=== PATIENT | female | born 1970 | race Two or more races ===

== ENCOUNTER 2023-10-09 17:39 | Emergency (ER) | payer OTHER ==
[~2023-10-09] VITALS: Ht 160 cm; Wt 88.6 kg
[2023-10-09 17:39] VITALS: BP 172/82; PULSE 95; RESP 16; TEMP 98
[2023-10-09] MEDS ORDERED: INSU100V SQ (17:51)
[2023-10-09] MEDS ORDERED: SITA1TBM4 PO (17:51)
[2023-10-09] MEDS ORDERED: INSLAN SQ (17:51)
[2023-10-09] MEDS ORDERED: METH-659 PO (17:51)
[2023-10-09] MEDS ORDERED: AMOX500C2 PO (17:51)
[2023-10-09] MEDS: CefTRIAXone SODIUM 1 GM/VIAL IM ONE (18:17)
[2023-10-09] MEDS: LIDOCAINE/PF 1% 2 ML VIAL IM ONE (18:18)
[2023-10-09] MEDS: DOXYCYCLINE HYCLATE 100 MG TABLET PO ONE (18:18)
[2023-10-09 18:34] LABS: BASOPHILS % (AUTO) 0.8 % (0.0-2.0); EOSINOPHILS % (AUTO) 1.2 % (1.0-6.0); HEMATOCRIT 33.6 % (36-46); LYMPHOCYTES # (AUTO) 1.5 K/uL (1.0-4.8); MEAN CORPUSCULAR HEMOGLOBIN 27.1 pg (26.0-34.0); MEAN CORPUSCULAR HGB CONC 32.7 G/dL (31.0-37.0); MEAN CORPUSCULAR VOLUME 83 fL (80-100); MONOCYTES # (AUTO) 0.7 K/uL (0.1-1.0); MONOCYTES % (AUTO) 7.3 % (2.0-9.0); NEUTROPHILS # (AUTO) 6.7 K/uL (1.8-7.7); NEUTROPHILS % (AUTO) 73.7 % (40.0-70.0); PLATELET COUNT (AUTO) 302 K/uL (150-450); RED BLOOD CELL COUNT(AUTO) 4.06 MIL/uL (4.00-5.20); RED CELL DISTRIBUTION WIDTH 14.7 % (11.5-14.5); WHITE BLOOD COUNT (AUTO) 9.1 K/uL (4.5-11.0)
[2023-10-09 18:45] LABS: LACTIC ACID 0.6 mmol/L (0.4-2.0)
[2023-10-09 18:50] LABS: ANION GAP 9 mmol/L (8-16); CARBON DIOXIDE 29 mmol/L (22-29); CHLORIDE 104 mmol/L (98-107); CREATININE 0.65 mg/dL (0.60-1.30); GLOMERULAR FILTR. RATE CALC > 60 mL/min (>60); GLUCOSE,RANDOM 138 mg/dL (70-110); POTASSIUM 4.1 mmol/L (3.5-5.1); SODIUM SERUM 142 mmol/L (136-145); UREA NITROGEN, BLOOD 17 mg/dL (7-18)
[2023-10-09] MEDS ORDERED: IBUP-1554 PO (20:34)
[2023-10-09] MEDS ORDERED: DOXY-354 PO (20:34)
[2023-10-09] MEDS ORDERED: CEPH-558 PO (20:34)
[2023-10-09] MEDS ORDERED: BACI28.410 TP (20:37)
== END 2023-10-09 20:50 | disposition home or self-care (01) ==
LOC: EMS 17:42
DX: S91.201A Unspecified open wound of right great toe with damage to nail, initial encounter (principal); L03.031 Cellulitis of right toe; E11.40 Type 2 diabetes mellitus with diabetic neuropathy, unspecified; J45.909 Unspecified asthma, uncomplicated; I10 Essential (primary) hypertension; Z90.49 Acquired absence of other specified parts of digestive tract; Z98.890 Other specified postprocedural states; Z88.0 Allergy status to penicillin; X58.XXXA Exposure to other specified factors, initial encounter; Y93.89 Activity, other specified; Y92.89 Other specified places as the place of occurrence of the external cause; Y99.8 Other external cause status
CPT/HCPCS: 99284; 80048; 82962; 83605; 85025; 36415; 73660; 96372; J0696; J3490

== ENCOUNTER 2023-10-11 13:57 | Emergency (ER) | payer OTHER ==
[~2023-10-11] VITALS: Ht 154.9 cm; Wt 81.8 kg
[~2023-10-11 13:57] MED LIST: AMOX500C2 PO; BACI28.410 TP; CEPH-558 PO; DOXY-354 PO; IBUP-1554 PO; INSLAN SQ; INSU100V SQ; METH-659 PO; SITA1TBM4 PO
[2023-10-11 14:53] VITALS: BP 167/86; PULSE 87; RESP 14; TEMP 97.9
== END 2023-10-11 16:12 | disposition home or self-care (01) ==
LOC: EMS 13:57
DX: L08.9 Local infection of the skin and subcutaneous tissue, unspecified (principal); J45.909 Unspecified asthma, uncomplicated; I10 Essential (primary) hypertension; Z90.49 Acquired absence of other specified parts of digestive tract; Z98.890 Other specified postprocedural states; Z88.0 Allergy status to penicillin
CPT/HCPCS: 82962; 99282

== ENCOUNTER 2025-01-16 20:39 | Inpatient (IN) | payer MEDICAID, OTHER ==
[~2025-01-16] VITALS: Ht 154.9 cm; Wt 92.0 kg
[2025-01-16] MEDS ORDERED: 0.9% SODIUM CHLORIDE 10 ML SYRINGE IVP ONE (20:55)
[2025-01-16] MEDS ORDERED: IOHEXOL 350 MG/ML 100 ML VIAL ONE (20:55)
[2025-01-16] MEDS ORDERED: SODIUM CHLORIDE 0.9% 100 ML ONE (20:55)
[2025-01-16 21:09] LABS: CALCIUM, TOTAL 8.8 mg/dL (8.8-10.5); CREATININE 1.05 mg/dL (0.60-1.30); GLOMERULAR FILTR. RATE CALC 55.0 mL/min (>60); GLUCOSE,RANDOM 231.0 mg/dL (70-110); SODIUM SERUM 137.0 mmol/L (136-145); UREA NITROGEN, BLOOD 25.0 mg/dL (7-18)
[2025-01-16 21:13] LABS: ASPARTATE AMINOTRANSFERASE 16.0 U/L (15-37); CHOL/HDL RATIO 2.9 (3.9-5.7); LDL CHOL (CALC.) 128.0 mg/dL (0-130); PLATELET COUNT (AUTO) 310 K/uL (150-450); RED BLOOD CELL COUNT(AUTO) 4.54 MIL/uL (4.00-5.20); RED CELL DISTRIBUTION WIDTH 14.8 % (11.5-14.5); TOTAL PROTEIN, SERUM 7.3 g/dL (6.4-8.2); WHITE BLOOD COUNT (AUTO) 11.1 K/uL (4.5-11.0)
[2025-01-16 21:15] LABS: TROPONIN I-HIGH SENSITIVITY 6 ng/L (<51)
[2025-01-16] MEDS: LABETALOL HCL 5 MG/ML 20 ML VIAL IVP ONE (21:40)
[2025-01-16] MEDS: SODIUM CHLORIDE 0.9% 1,000 ML IV ONE (21:40)
[2025-01-16] MEDS: CLOPIDOGREL BISULFATE 300 MG TABLET PO ONE (21:41)
[2025-01-16] MEDS: ASPIRIN 81 MG CHEWABLE TABLET PO ONE (21:41)
[2025-01-16] MEDS ORDERED: BISACODYL 10 MG RECTAL RECTAL SUPPOSITORY PR PRN (23:00)
[2025-01-16] MEDS ORDERED: MAGNESIUM HYDROXIDE SUSPENSION 30 ML UDCUP PO PRN (23:00)
[2025-01-16] MEDS ORDERED: ONDANSETRON HCL 4 MG/2 ML VIAL IVP PRN (23:00)
[2025-01-16] MEDS ORDERED: ACETAMINOPHEN 325 MG TABLET PO PRN (23:00)
[2025-01-16] MEDS ORDERED: ZOLPIDEM TARTRATE 5 MG TABLET PO PRN (23:00)
[2025-01-16] MEDS ORDERED: HYDROCODONE/ACETAMINOPHEN 5-325 MG TABLET PO PRN (23:00)
[2025-01-16] MEDS ORDERED: MORPHINE SULFATE 2 MG/ML SYRINGE IVP PRN (23:00)
[2025-01-16] MEDS: HEPARIN SODIUM,PORCINE 5,000 UNITS/ML VIAL SQ SCH (23:51)
[2025-01-17 03:19] LABS: TROPONIN I-HIGH SENSITIVITY 9 ng/L (<51)
[2025-01-17 03:30] VITALS: BP 160/96; PULSE 83; RESP 16; TEMP 98.1; O2SAT 99
[2025-01-17 05:14] LABS: APPEARANCE,URINE CLEAR (CLEAR); GLUCOSE, URINE (UA) 70-100 mg/dL (NEGATIVE); LEUKOCYTE ESTERASE ,URINE NEGATIVE (NEGATIVE); NITRATE,URINE NEGATIVE (NEGATIVE); OCCULT BLOOD,URINE TRACE (NEGATIVE); PH,URINE DRUG SCREEN 6.5 (5.0-8.0); SPECIFIC GRAVITIY, URINE 1.028 (1.003-1.030)
[2025-01-17 05:18] LABS: ALCOHOL, URINE DRUG SCREEN NEGATIVE (NEGATIVE); AMPHET/METH SCREEN,URINE NEGATIVE (NEGATIVE); BARBITURATE SCREEN, URINE NEGATIVE (NEGATIVE); CANNABINOID SCREEN,URINE NEGATIVE (NEGATIVE); COCAINE SCREEN,URINE NEGATIVE (NEGATIVE); METHADONE SCREEN, URINE NEGATIVE (NEGATIVE)
[2025-01-17 05:35] LABS: SULFOSALICYLIC ACID,URINE 2+ (Negative)
[2025-01-17 06:01] LABS: GLUCOMETER DEV NAME(LOC) 5S.1D; GLUCOSE,POINT OF CARE 201 MG/DL (70-110)
[2025-01-17 07:22] VITALS: BP 155/75; RESP 18; TEMP 98; O2SAT 98
[2025-01-17] MEDS ORDERED: MISC MED-CONVERTED FROM AMBULATORY (Sitagliptin Phos/Metformin HCl (Janumet 50-1,000 mg Ta PO SCH (08:00)
[2025-01-17 09:42] LABS: TROPONIN I-HIGH SENSITIVITY 8 ng/L (<51)
[2025-01-17] MEDS: ASPIRIN 81 MG CHEWABLE TABLET PO SCH (10:22)
[2025-01-17] MEDS: DOCUSATE SODIUM 100 MG CAPSULE PO SCH (10:23)
[2025-01-17] MEDS: CLOPIDOGREL BISULFATE 75 MG TABLET PO SCH (10:24)
[2025-01-17] MEDS: PANTOPRAZOLE SODIUM 40 MG DR TABLET PO SCH (10:25)
[2025-01-17 11:49] VITALS: BP 157/80; PULSE 87; RESP 16; TEMP 98.2; O2SAT 95
[2025-01-17 16:12] VITALS: BP 149/82; PULSE 82; RESP 18; TEMP 98; O2SAT 96
[2025-01-17] MEDS ORDERED: ATORVASTATIN CALCIUM 20 MG TABLET PO SCH (21:00)
[2025-01-17] MEDS ORDERED: ATORVASTATIN CALCIUM 40 MG TABLET PO SCH (21:00)
[2025-01-17] MEDS ORDERED: INSULIN GLARGINE,HUM.REC.ANLOG 100 UNITS/ML SQ SCH (21:00)
[2025-01-18] MEDS ORDERED: LEVOTHYROXINE SODIUM 100 MCG TABLET PO SCH (06:30)
== END 2025-01-17 16:23 | disposition left against medical advice (07) | DRG 45 ==
LOC: EMS 20:39 → EDH 22:55 → 5N 01-17 03:15
PROVIDERS: ADMIT Internal Medicine; ATTEND Internal Medicine
DX: I63.9 Cerebral infarction, unspecified (principal); E11.40 Type 2 diabetes mellitus with diabetic neuropathy, unspecified; E66.01 Morbid (severe) obesity due to excess calories; D72.829 Elevated white blood cell count, unspecified; I10 Essential (primary) hypertension; I16.1 Hypertensive emergency; Z53.29 Procedure and treatment not carried out because of patient's decision for other reasons; R94.6 Abnormal results of thyroid function studies; J45.909 Unspecified asthma, uncomplicated; Z68.38 Body mass index [BMI] 38.0-38.9, adult; Z88.0 Allergy status to penicillin
CPT/HCPCS: 70496; 70498; 70551; 71045; 80053; 80061; 80307; 81001; 81002; 82948; 82962; 83036; 84443; 84484; 85025; 85610; 85730; 86850; 86900; 86901; 92523; 92610; 93005; 93880; 96361; 96374; 97116; 97163; 99292; G0378; J1644; J1815; J3490; J7030; J7050; 36415-L1; 36415-TC; 70450; 70450-TC

== ENCOUNTER 2025-03-27 12:32 | Inpatient (IN) | payer MEDICAID, OTHER ==
[~2025-03-27] VITALS: Ht 157.5 cm; Wt 103.5 kg
[2025-03-27 12:55] LABS: COVID AG,FIA SOURCE NASAL SWAB
[2025-03-27 13:18] LABS: PLATELET COUNT (AUTO) 289 K/uL (150-450); RED BLOOD CELL COUNT(AUTO) 4.44 MIL/uL (4.00-5.20); RED CELL DISTRIBUTION WIDTH 14.9 % (11.5-14.5); WHITE BLOOD COUNT (AUTO) 15.5 K/uL (4.5-11.0)
[2025-03-27 13:27] LABS: CALCIUM, TOTAL 8.9 mg/dL (8.8-10.5); CREATININE 0.67 mg/dL (0.60-1.30); GLOMERULAR FILTR. RATE CALC > 60 mL/min (>60); GLUCOSE,RANDOM 133 mg/dL (70-110); SODIUM SERUM 141 mmol/L (136-145); UREA NITROGEN, BLOOD 26 mg/dL (7-18)
[2025-03-27 13:32] LABS: SARS-COV2 (COVID) ANTIGEN,FIA Negative (Negative)
[2025-03-27 13:33] LABS: TROPONIN I-HIGH SENSITIVITY 15 ng/L (<51)
[2025-03-27 13:33] LABS: INFLUENZA TYPE A NEGATIVE FOR TYPE A (NEGATIVE); INFLUENZA TYPE B NEGATIVE FOR TYPE B (NEGATIVE)
[2025-03-27] MEDS ORDERED: LEVO100 PO (15:00)
[2025-03-27] MEDS ORDERED: LISI-894 PO (15:00)
[2025-03-27] MEDS ORDERED: ASPI-1450 PO (15:00)
[2025-03-27] MEDS: ACETAMINOPHEN 500 MG TABLET PO ONE (15:45)
[2025-03-27] MEDS ORDERED: 0.9% SODIUM CHLORIDE 5 ML NEB SOLUTION NEB ONE (16:55)
[2025-03-27] MEDS: CefTRIAXone 1 GM/DEXTROSE 50 ML IV ONE (16:56)
[2025-03-27] MEDS: FUROSEMIDE 40 MG/4 ML VIAL IVP ONE (16:56)
[2025-03-27] MEDS: IPRATROPIUM BROMIDE 0.5 MG/2.5 ML NEB SOLUTION NEB ONE (16:57)
[2025-03-27] MEDS: ALBUTEROL SULFATE 2.5 MG/0.5 ML 5 ML NEB SOLUTION NEB ONE (16:58)
[2025-03-27 17:00] VITALS: PULSE 83; RESP 20; O2SAT 96
[2025-03-27] MEDS ORDERED: 0.9% SODIUM CHLORIDE 10 ML SYRINGE IVP ONE (17:20)
[2025-03-27] MEDS ORDERED: SODIUM CHLORIDE 0.9% 100 ML ONE (17:20)
[2025-03-27] MEDS ORDERED: IOHEXOL 350 MG/ML 100 ML VIAL ONE (17:20)
[2025-03-27] MEDS: AZITHROMYCIN 500 MG/NS 250 ML IV ONE (17:41)
[2025-03-27 19:39] LABS: APPEARANCE,URINE CLEAR (CLEAR); GLUCOSE, URINE (UA) TRACE mg/dL (NEGATIVE); LEUKOCYTE ESTERASE ,URINE NEGATIVE (NEGATIVE); NITRATE,URINE NEGATIVE (NEGATIVE); OCCULT BLOOD,URINE MODERATE (NEGATIVE); SPECIFIC GRAVITIY, URINE 1.011 (1.003-1.030)
[2025-03-27] MEDS ORDERED: DEXTROSE 50%-WATER 25 GM/50 ML SYRINGE IVP PRN (20:15)
[2025-03-27] MEDS: FUROSEMIDE 20 MG/2 ML VIAL IVP SCH (21:14)
[2025-03-27] MEDS: LEVOFLOXACIN 750 MG/D5% WATER 150 ML IV SCH (21:15)
[2025-03-27] MEDS: INSULIN GLARGINE,HUM.REC.ANLOG 100 UNITS/ML SQ SCH (21:16)
[2025-03-27 21:36] LABS: SULFOSALICYLIC ACID,URINE 4+ (Negative)
[2025-03-27 21:39] LABS: SQUAMOUS EPITHELIAL CELL,UR Rare /LPF (None Seen)
[2025-03-27 23:03] VITALS: BP 171/83; PULSE 101; RESP 19; TEMP 97.9; O2SAT 97
[2025-03-28] VITALS (8 sets, daily range): BP systolic 125–169; BP diastolic 50–73; PULSE 76–93; RESP 17–20; TEMP 97.7–98.6; O2SAT 93–100
[2025-03-28] MEDS: INSULIN LISPRO 100 UNITS/ML SQ PRN (05:50)
[2025-03-28] MEDS: LEVOTHYROXINE SODIUM 100 MCG TABLET PO SCH (05:51)
[2025-03-28 06:17] LABS: PLATELET COUNT (AUTO) 249 K/uL (150-450); RED BLOOD CELL COUNT(AUTO) 3.67 MIL/uL (4.00-5.20); RED CELL DISTRIBUTION WIDTH 14.6 % (11.5-14.5); WHITE BLOOD COUNT (AUTO) 8.7 K/uL (4.5-11.0)
[2025-03-28 06:26] LABS: CALCIUM, TOTAL 8.1 mg/dL (8.8-10.5); CREATININE 0.78 mg/dL (0.60-1.30); GLOMERULAR FILTR. RATE CALC > 60 mL/min (>60); GLUCOSE,RANDOM 313 mg/dL (70-110); SODIUM SERUM 138 mmol/L (136-145); UREA NITROGEN, BLOOD 23 mg/dL (7-18)
[2025-03-28] MEDS: ASPIRIN 81 MG CHEWABLE TABLET PO SCH (09:02)
[2025-03-28 11:54] LABS: TROPONIN I-HIGH SENSITIVITY 48 ng/L (<51)
[2025-03-28] MEDS: GuaiFENesin/D-METHORPHAN/PHENYLEPH 5 ML LIQUID ORAL.SYG PO PRN (15:33)
[2025-03-28] MEDS: INSULIN GLARGINE,HUM.REC.ANLOG 100 UNITS/ML SQ SCH (20:17)
[2025-03-28 20:40] LABS: GLUCOMETER DEV NAME(LOC) 5N.2C; GLUCOSE,POINT OF CARE 261 MG/DL (70-110)
[2025-03-28 20:40] LABS: GLUCOMETER DEV NAME(LOC) 5N.2C; GLUCOSE,POINT OF CARE 295 MG/DL (70-110)
[2025-03-28 20:40] LABS: GLUCOMETER DEV NAME(LOC) 5N.2C; GLUCOSE,POINT OF CARE 328 MG/DL (70-110)
[2025-03-28 20:40] LABS: GLUCOMETER DEV NAME(LOC) 5N.2C; GLUCOSE,POINT OF CARE 362 MG/DL (70-110)
[2025-03-28] MEDS: ALBUTEROL SULFATE 2.5 MG/0.5 ML NEB SOLUTION NEB PRN (21:56)
[2025-03-28] MEDS: IPRATROPIUM BROMIDE 0.5 MG/2.5 ML NEB SOLUTION NEB PRN (21:56)
[2025-03-29 04:16] VITALS: BP 137/60; PULSE 85; RESP 18; TEMP 98.2; O2SAT 95
[2025-03-29 06:22] LABS: PLATELET COUNT (AUTO) 253 K/uL (150-450); RED BLOOD CELL COUNT(AUTO) 3.63 MIL/uL (4.00-5.20); RED CELL DISTRIBUTION WIDTH 14.2 % (11.5-14.5); WHITE BLOOD COUNT (AUTO) 7.2 K/uL (4.5-11.0)
[2025-03-29 06:31] LABS: CALCIUM, TOTAL 8.3 mg/dL (8.8-10.5); CREATININE 0.82 mg/dL (0.60-1.30); GLOMERULAR FILTR. RATE CALC > 60 mL/min (>60); GLUCOSE,RANDOM 219 mg/dL (70-110); SODIUM SERUM 140 mmol/L (136-145); UREA NITROGEN, BLOOD 28 mg/dL (7-18)
[2025-03-29 08:07] VITALS: BP 156/67; PULSE 83; RESP 18; TEMP 98.3; O2SAT 96
[2025-03-29 10:15] VITALS: PULSE 86; RESP 20; O2SAT 99
[2025-03-29 10:31] VITALS: PULSE 78; RESP 20; O2SAT 99
[2025-03-29 10:59] VITALS: BP 152/62; PULSE 84; RESP 18; TEMP 98.1; O2SAT 97
[2025-03-29 14:26] LABS: TROPONIN I-HIGH SENSITIVITY 35 ng/L (<51)
[2025-03-29 14:30] LABS: GLUCOMETER DEV NAME(LOC) 5S.2D; GLUCOSE,POINT OF CARE 209 MG/DL (70-110)
[2025-03-29 14:30] LABS: GLUCOMETER DEV NAME(LOC) 5S.2D; GLUCOSE,POINT OF CARE 330 MG/DL (70-110)
[2025-03-29] MEDS: CefTRIAXone 1 GM/DEXTROSE 50 ML IV SCH (14:47)
[2025-03-29] MEDS: FUROSEMIDE 20 MG/2 ML VIAL IVP ONE (14:47)
[2025-03-29] MEDS ORDERED: SODIUM CHLORIDE 0.9% 250 ML IV ONE (14:53)
[2025-03-29] MEDS: AZITHROMYCIN 500 MG/NS 250 ML IV SCH (16:01)
[2025-03-29] MEDS: INSULIN GLARGINE,HUM.REC.ANLOG 100 UNITS/ML SQ ONE (16:09)
[2025-03-29 19:14] VITALS: BP 154/78; PULSE 85; RESP 18; TEMP 97.9; O2SAT 98
[2025-03-29] MEDS ORDERED: INSULIN GLARGINE,HUM.REC.ANLOG 100 UNITS/ML SQ SCH (21:00)
[2025-03-30 11:20] LABS: GLUCOMETER DEV NAME(LOC) 5S.2D; GLUCOSE,POINT OF CARE 337 MG/DL (70-110)
[2025-03-30 11:20] LABS: GLUCOMETER DEV NAME(LOC) 5S.2D; GLUCOSE,POINT OF CARE 300 MG/DL (70-110)
== END 2025-03-29 19:37 | disposition left against medical advice (07) | DRG 194 ==
LOC: EMS 12:32 → EDH 20:12 → 5S 22:30
PROVIDERS: ADMIT Internal Medicine; ATTEND Internal Medicine
DX: I11.0 Hypertensive heart disease with heart failure (principal); J18.9 Pneumonia, unspecified organism; I50.31 Acute diastolic (congestive) heart failure; E11.65 Type 2 diabetes mellitus with hyperglycemia; K21.9 Gastro-esophageal reflux disease without esophagitis; E66.9 Obesity, unspecified; E11.40 Type 2 diabetes mellitus with diabetic neuropathy, unspecified; Z20.822 Contact with and (suspected) exposure to COVID-19; J45.909 Unspecified asthma, uncomplicated; Z53.29 Procedure and treatment not carried out because of patient's decision for other reasons; E78.5 Hyperlipidemia, unspecified; F17.200 Nicotine dependence, unspecified, uncomplicated; I69.30 Unspecified sequelae of cerebral infarction; Z91.148 Patient's other noncompliance with medication regimen for other reason; Z88.0 Allergy status to penicillin; Z68.41 Body mass index [BMI] 40.0-44.9, adult; Z79.899 Other long term (current) drug therapy; Z79.82 Long term (current) use of aspirin; Z90.49 Acquired absence of other specified parts of digestive tract
CPT/HCPCS: 70450; 71045; 71275; 80048; 81001; 81002; 82962; 83880; 84484; 85025; 87040; 87804; 93005; 93306; 94640; 94644; 96365; 96367; 96372; 96375; 99285; G0378; J0360; J0456; J0696; J1815; J1938; J1956; J7050; 36415-L1; 36415-TC